=== PATIENT | female | born 1955 | race Caucasian/White ===

== ENCOUNTER 2021-02-10 09:57 | Emergency (ER) | payer OTHER | END 2021-02-10 11:00 | disposition home or self-care (01) | LOC: FER 09:57 | DX: S50.11XA Contusion of right forearm, initial encounter (principal); I10 Essential (primary) hypertension; I48.91 Unspecified atrial fibrillation; Z88.0 Allergy status to penicillin; Z88.5 Allergy status to narcotic agent; Z88.8 Allergy status to other drugs, medicaments and biological substances; W19.XXXA Unspecified fall, initial encounter | CPT/HCPCS: 73090 ==

== ENCOUNTER 2022-03-14 02:46 | Emergency (ER) | payer OTHER ==
[2022-03-14 03:09] LABS: BASOPHIL 0.6 % (0-2); EOSINOPHIL 8.2 % (0-7); HCT 38.2 % (37.0-47.0); HGB 12.3 g/dl (12.5-16.0); LYMPHOCYTE 37.3 % (15-48); MCH 29.1 pg (25.0-31.0); MCHC 32.2 g/dL (32.0-36.0); MCV 90.5 fL (78.0-100.0); MPV 9.9 fL (6.0-9.5); NEUTROPHIL 43.1 % (41-80); NRBC 0; PLT 346 K/uL (150-400); RBC 4.22 M/uL (4.20-5.40); RDW 12.8 % (11.5-14.0); WBC 8.6 K/uL (4.0-10.5)
[2022-03-14 03:33] LABS: ALBUMIN 3.7 g/dL (3.4-5.0); BILIRUBIN - TOTAL 0.3 mg/dL (0.2-1.0); BUN/CREAT RATIO (CALC) 14.9 RATIO; CREATININE 0.87 mg/dL (0.51-0.95); GLOBULIN (CALCULATION) 3.9 g/dL; POTASSIUM 4.2 mmol/L (3.5-5.1); TOTAL PROTEIN 7.6 g/dL (6.4-8.2)
[2022-03-14 03:50] LABS: CORONAVIRUS 2019 SARS-COV-2 NEGATIVE (NEGATIVE); INFLUENZA A NAA NEGATIVE (NEGATIVE)
== END 2022-03-14 17:53 | disposition left against medical advice (07) ==
LOC: FER 02:46
PROVIDERS: Emergency Medicine
DX: I16.0 Hypertensive urgency (principal); R20.2 Paresthesia of skin; I48.91 Unspecified atrial fibrillation; I69.398 Other sequelae of cerebral infarction; Z79.01 Long term (current) use of anticoagulants; Z88.0 Allergy status to penicillin; Z88.6 Allergy status to analgesic agent; Z91.012 Allergy to eggs; Z53.29 Procedure and treatment not carried out because of patient's decision for other reasons; Z20.822 Contact with and (suspected) exposure to COVID-19
CPT/HCPCS: 36415; 70450; 71045; 80053; 83880; 84145; 84484; 85025; J7030; U0002